=== PATIENT | female | born 1950 | race African-American/Black ===

== ENCOUNTER 2018-10-26 14:54 | Emergency (ER) | payer OTHER ==
--- OUTSIDE RECORDS SUMMARY | 2018-10-26 15:09 | XMS REPORT ---
:1950 [facility] Address [address] [place] [address] Dr. Wilcox [address] [place] [id number] Care Team Providers Name Role Phone Unavailable Unavailable Unavailable Problems This patient has no known problems. Allergies, Adverse Reactions, Alerts This patient has no known allergies or adverse reactions. Medications This patient has no known medications.
[2018-10-26] MEDS ORDERED: MORPHINE 4 MG/ML SYR ONE (16:54)
[2018-10-26] MEDS ORDERED: ONDANSETRON 4 MG (ODT) TAB ONE (16:55)
--- NOTE | 2018-10-26 17:09 | RAD REPORT ---
EXAM DESCRIPTION: USExtremjoshua Venous Uni Ltd10/26/2018 4:41 pm CLINICAL HISTORY: Right leg pain . COMPARISON: None. FINDINGS: Right common femoral, superficial femoral, popliteal and right posterior tibial veins are compressible and demonstrate augmentation. Doppler demonstrates good flow. IMPRESSION: No evidence of deep venous thrombosis involving the right lower extremity.
--- NOTE | 2018-10-26 17:24 | EDPHYS ---
Physician Documentation [facility] Name: Jesusita John Age: 68 yrs Sex: Female : 1950 Arrival Date: 10/26/2018 Time: 14:57 Bed 25 Private MD: Jesse Retana R ED Physician Sourav Guevara HPI: 10/26 16:38 This 68 yrs old Black Female presents to ER via Ambulatory with complaints of Right Leg pm1 Pain. 16:38 The patient presents with pain, swelling. The complaints affect the right lower pm1 extremity. Context: The problem was sustained at home, resulted from an unknown cause, the patient can fully bear weight, the patient is able to ambulate. Onset: The symptoms/episode began/occurred 3 month(s) ago. Modifying factors: The symptoms are alleviated by elevating leg, the symptoms are aggravated by nothing. Associated signs and symptoms: Pertinent negatives fever, shortness of breath and chest pain. Treatment prior to arrival includes: prescription medications, Oxycontin for pain. The patient has been recently seen by a physician: Dr. Wilhelm. Patient saw him 3 months ago for the same complaint of right lower leg swelling and pain. U/S performed and she was told that she had a small blood clot that did not require any intervention except for medications. Patient placed on blood thinners and then followed up with him 2-3 weeks ago and had a ultrasound performed that was negative. Patient reports improvement in the swelling but it has not completely resolved. Historical: - Allergies: 15:13 Bactrim; sg - PMHx: 15:13 Diabetes - IDDM; Hypertension; sg - PSHx: 15:13 Stent placed in RLE; sg - Immunization history:: Adult Immunizations up to date. - Social history:: Smoking status: Patient/guardian denies using tobacco. - Ebola Screening: : Patient negative for fever greater than or equal to 101.5 degrees Fahrenheit, and additional compatible Ebola Virus Disease symptoms Patient denies exposure to infectious person Patient denies travel to an Ebola-affected area in the 21 days before illness onset No symptoms or risks identified at this time. ROS: 16:40 Constitutional: Negative for fever, chills, and weight loss, Eyes: Negative for injury, pm1 pain, redness, and discharge, ENT: Negative for injury, pain, and discharge, Neck: Negative for injury, pain, and swelling, Respiratory: Negative for shortness of breath, cough, wheezing, and pleuritic chest pain, Abdomen/GI: Negative for abdominal pain, nausea, vomiting, diarrhea, and constipation. 16:40 : Negative for injury, bleeding, discharge, and swelling, MS/Extremity: Negative for injury and deformity, Skin: Negative for injury, rash, and discoloration, Neuro: Negative for headache, weakness, numbness, tingling, and seizure. 16:40 Cardiovascular: Positive for edema, right lower leg, Negative for chest pain, orthopnea, palpitations. 16:40 Back: Positive for of the right low back, Negative for injury or acute deformity. Exam: 16:40 Constitutional: This is a well developed, well nourished patient who is awake, alert, pm1 and in no acute distress. Head/Face: Normocephalic, atraumatic. Eyes: Pupils equal round and reactive to light, extra-ocular motions intact. Lids and lashes normal. Conjunctiva and sclera are non-icteric and not injected. Cornea within normal limits. Periorbital areas with no swelling, redness, or edema. ENT: Nares patent. No nasal discharge, no septal abnormalities noted. Tympanic membranes are normal and external auditory canals are clear. Oropharynx with no redness, swelling, or masses, exudates, or evidence of obstruction, uvula midline. Mucous membranes moist. Neck: Trachea midline, no thyromegaly or masses palpated, and no cervical lymphadenopathy. Supple, full range of motion without nuchal rigidity, or vertebral point tenderness. No Meningismus. Chest/axilla: Normal chest wall appearance and motion. Nontender with no deformity. No lesions are appreciated. Cardiovascular: Regular rate and rhythm with a normal S1 and S2. No gallops, murmurs, or rubs. Normal PMI, no JVD. No pulse deficits. Respiratory: Lungs have equal breath sounds bilaterally, clear to auscultation and percussion. No rales, rhonchi or wheezes noted. No increased work of breathing, no retractions or nasal flaring. Abdomen/GI: Soft, non-tender, with normal bowel sounds. No distension or tympany. No guarding or rebound. No evidence of tenderness throughout. Back: No spinal tenderness. No costovertebral tenderness. Full range of motion. Skin: Warm, dry with normal turgor. Normal color with no rashes, no lesions, and no evidence of cellulitis. 16:40 Musculoskeletal/extremity: DVT Exam: no pain, no tenderness, negative Homans' sign noted on exam, no appreciated bluish discoloration, no erythema, no increased warmth, Calves: are non-tender, mild swelling present to right lower extremity below knee. Vital Signs: 15:13 Temp 98.3; sg 16:53 BP 131 / 58; Pulse 62; Resp 17; Pulse Ox 95% ; rv MDM: 15:18 Patient medically screened. pm1 17:22 Data reviewed: vital signs. Data interpreted: Pulse oximetry: on room air is 95 %. pm1 Interpretation: normal. Counseling: I had a detailed discussion with the patient and/or guardian regarding: the historical points, exam findings, and any diagnostic results supporting the discharge/admit diagnosis, radiology results, the need for outpatient follow up, to return to the emergency department if symptoms worsen or persist or if there are any questions or concerns that arise at home. 17:22 ED course: Patient with negative U/S today for DVT to right lower extremity. Patient pm1 had a negative right lower extremity U/S r/o DVT 2-[address] Wilhelm. Patient has pain management with oxycontin. Impression: peripheral edema. Dr Wilhelm decreased patient's amlodipine 1 week ago for patient's right lower extremity swelling. 10/26 15:20 Order name: Extremity Venous Uni Ltd ; Complete Time: 17:11 pm1 Administered Medications: 16:43 Drug: Zofran 4 mg Route: PO; rv 17:11 Follow up: Response: No adverse reaction rv 16:45 Drug: morphine 4 mg Route: IM; Site: left deltoid; rv 17:11 Follow up: Response: Pain is decreased rv Disposition: 10/26/18 17:24 Discharged to Home. Impression: Edema right lower extremity. - Condition is Stable. - Discharge Instructions: Peripheral Edema. - Medication Reconciliation Form, Thank You Letter, Antibiotic Education, Prescription Opioid Use form. - Follow up: Emergency Department; When: As needed; Reason: Worsening of condition. Follow up: Private Physician; When: 2 - 3 days; Reason: Recheck today's complaints, Continuance of care, Re-evaluation by your physician. - Problem is new. - Symptoms have improved. Addendum: 10/29/2018 21:15 Co-signature as Attending Physician, Sourav Guevara MD Available for consultation at p s1 all times. . Signatures: Dispatcher [employer] EDMS Jameel Fairchild, RN RN sg Fly Barragan, WINDING INSPECTOR WINDING INSPECTOR pm1 Sourav Guevara MD MD ps1 Braydon Curtis RN RN rv Corrections: (The following items were deleted from the chart) 10/26 17:42 17:24 10/26/2018 17:24 Discharged to Home. Impression: Edema right lower extremity. rv Condition is Stable. Forms are Medication Reconciliation Form, Thank You Letter, Antibiotic Education, Prescription Opioid Use. Follow up: Emergency Department; When: As needed; Reason: Worsening of condition. Follow up: Private Physician; When: 2 - 3 days; Reason: Recheck today's complaints, Continuance of care, Re-evaluation by your physician. Problem is new. Symptoms have improved. pm1
--- NOTE | 2018-10-26 17:24 | ER ---
Nurse's Notes [facility] Name: Jesusita John Age: 68 yrs Sex: Female : 1950 Arrival Date: 10/26/2018 Time: 14:57 Bed 25 Private MD: Jesse Retana R Diagnosis: Edema right lower extremity Presentation: 10/26 15:11 Presenting complaint: Patient states: Bilateral lower extremiity swelling and pain for sg several months, worsening today in the right lower extremity, reports redness and swelling, has a hx of DVT with stent placement several years ago, denies SOB or difficulty breathing at this time. Transition of care: patient was not received from another setting of care. Onset of symptoms was October 26, 2018. Risk Assessment: Do you want to hurt yourself or someone else? Patient reports no desire to harm self or others. Initial Sepsis Screen: Does the patient meet any 2 criteria? No. Patient's initial sepsis screen is negative. Does the patient have a suspected source of infection? No. Patient's initial sepsis screen is negative. Care prior to arrival: None. 15:11 Method Of Arrival: Ambulatory sg 15:11 Acuity: VITA 3 sg Historical: - Allergies: 15:13 Bactrim; sg - PMHx: 15:13 Diabetes - IDDM; Hypertension; sg - PSHx: 15:13 Stent placed in RLE; sg - Immunization history:: Adult Immunizations up to date. - Social history:: Smoking status: Patient/guardian denies using tobacco. - Ebola Screening: : Patient negative for fever greater than or equal to 101.5 degrees Fahrenheit, and additional compatible Ebola Virus Disease symptoms Patient denies exposure to infectious person Patient denies travel to an Ebola-affected area in the 21 days before illness onset No symptoms or risks identified at this time. Screenin:51 Abuse screen: Denies threats or abuse. Denies injuries from another. Nutritional rv screening: No deficits noted. Tuberculosis screening: No symptoms or risk factors identified. Fall Risk None identified. Assessment: 16:50 General: Appears in no apparent distress. uncomfortable, Behavior is calm, cooperative. rv Pain: Complains of pain in right leg. Neuro: Level of Consciousness is awake, alert, obeys commands, Oriented to person, place, time, situation. Cardiovascular: Capillary refill < 3 seconds. Respiratory: Airway is patent. GI: No signs and/or symptoms were reported involving the gastrointestinal system. : No signs and/or symptoms were reported regarding the genitourinary system. EENT: No signs and/or symptoms were reported regarding the EENT system. Derm: Skin is intact. Musculoskeletal: Swelling present in right leg and left leg Reports pain in right leg. Vital Signs: 15:13 Temp 98.3; sg 16:53 BP 131 / 58; Pulse 62; Resp 17; Pulse Ox 95% ; rv ED Course: 14:57 Patient arrived in ED. mr 14:58 Jesse Retana MD is Private Physician. mr 15:09 Braydon Curtis RN is Primary Nurse. rv 15:09 Fly Barragan NP is PHCP. pm1 15:09 Sourav Guevara MD is Attending Physician. pm1 15:12 Triage completed. sg 15:12 Arm band placed on. sg 16:39 Ultrasound completed. Patient tolerated well. sg3 16:42 Extremity Venous Uni Ltd US In Process Unspecified. EDMS 16:52 Patient has correct armband on for positive identification. Bed in low position. Call rv light in reach. Side rails up X 1. Adult w/ patient. Pulse ox on. NIBP on. 17:41 No provider procedures requiring assistance completed. rv 17:42 Patient did not have IV access during this emergency room visit. rv Administered Medications: 16:43 Drug: Zofran 4 mg Route: PO; rv 17:11 Follow up: Response: No adverse reaction rv 16:45 Drug: morphine 4 mg Route: IM; Site: left deltoid; rv 17:11 Follow up: Response: Pain is decreased rv Outcome: 17:24 Discharge ordered by MD. pm1 17:42 Discharged to home via wheelchair. rv 17:42 Condition: good 17:42 Discharge instructions given to patient, family, Instructed on discharge instructions, follow up and referral plans. Demonstrated understanding of instructions, follow-up care. 17:42 Patient left the ED. rv Signatures: Dispatcher [employer] EDMS Jameel Fairchild RN RN sg Helena Morillo mr Fly Barragan, HEATHER CHIEF MINISTER pm1 Simran Contreras sg3 Ever, Braydon, RN RN rv
[2018-10-26 17:46] VITALS: TEMP 98.3
[2018-10-26 17:47] VITALS: BP 131/58; O2SAT 95
== END 2018-10-26 17:42 | disposition home or self-care (01) ==
LOC: ER 14:54
DX: R60.0 Localized edema (principal); E11.9 Type 2 diabetes mellitus without complications; I10 Essential (primary) hypertension; Z79.4 Long term (current) use of insulin; Z88.1 Allergy status to other antibiotic agents
CPT/HCPCS: 93971; 96372; 99283

== ENCOUNTER 2018-12-24 11:33 | Emergency (ER) | payer OTHER ==
--- OUTSIDE RECORDS SUMMARY | 2018-12-24 11:36 | XMS REPORT ---
:1950 [facility] Address [address] [place] [address] Dr. Wilcox [address] [place] [id number] Care Team Providers Name Role Phone Unavailable Unavailable Unavailable Problems This patient has no known problems. Allergies, Adverse Reactions, Alerts This patient has no known allergies or adverse reactions. Medications This patient has no known medications.
--- NOTE | 2018-12-24 12:46 | ER ---
Nurse's Notes [facility] Name: Jesusita John Age: 68 yrs Sex: Female : 1950 Arrival Date: 12/24/2018 Time: 11:36 Bed 13 Private MD: Jesse Retana R Diagnosis: Sciatica, right side;Sciatica, left side Presentation: 12/24 11:43 Presenting complaint: Patient states: Bilateral lower extremity pain for last three sg days, reports it feels like neuropathy pain but her home medications of Oxycodone,Gabapentin and Cymbalta are not helping, reports having pain even with the lightest touch, reports sciatic pain that runs up both sides of legs into the groin as well. Transition of care: patient was not received from another setting of care. Onset of symptoms was December 24, 2018. Risk Assessment: Do you want to hurt yourself or someone else? Patient reports no desire to harm self or others. Initial Sepsis Screen: Does the patient meet any 2 criteria? No. Patient's initial sepsis screen is negative. Does the patient have a suspected source of infection? No. Patient's initial sepsis screen is negative. Care prior to arrival: None. 11:43 Acuity: VITA 4 sg 11:43 Method Of Arrival: Ambulatory sg Historical: - Allergies: 11:45 Bactrim; sg - PMHx: 11:45 Diabetes - IDDM; Hypertension; sg - PSHx: 11:45 Stent placed in RLE; sg 11:46 Toe Amputation; sg - Immunization history:: Adult Immunizations up to date. - Social history:: Smoking status: Patient/guardian denies using tobacco. - Ebola Screening: : Patient negative for fever greater than or equal to 101.5 degrees Fahrenheit, and additional compatible Ebola Virus Disease symptoms Patient denies exposure to infectious person Patient denies travel to an Ebola-affected area in the 21 days before illness onset No symptoms or risks identified at this time. Screenin:02 Abuse screen: Denies threats or abuse. Denies injuries from another. Nutritional ca1 screening: No deficits noted. Tuberculosis screening: No symptoms or risk factors identified. Fall Risk Ambulatory Aid- Crutches/Cane/Walker (15 pts). Assessment: 12:02 General: Appears in no apparent distress. comfortable, Behavior is calm, cooperative, ca1 appropriate for age. Pain: Complains of pain in buttocks, groin, right leg and left leg Pain currently is 10 out of 10 on a pain scale. Pain began 2-3 days ago. Is chronic. Neuro: Level of Consciousness is awake, alert, obeys commands, Oriented to person. Cardiovascular: Heart tones S1 S2 present Capillary refill < 3 seconds Patient's skin is warm and dry. Respiratory: Airway is patent Respiratory effort is even, unlabored, Respiratory pattern is regular, symmetrical, Breath sounds are clear bilaterally. GI: Abdomen is round non-distended, Bowel sounds present X 4 quads. Abd is soft and non tender X 4 quads. : No deficits noted. No signs and/or symptoms were reported regarding the genitourinary system. EENT: No deficits noted. No signs and/or symptoms were reported regarding the EENT system. Derm: Skin is intact, is healthy with good turgor, Skin is pink, warm \T\ dry. Musculoskeletal: Circulation, motion, and sensation intact. Capillary refill < 3 seconds, Range of motion: intact in all extremities. 13:00 Reassessment: Patient appears in no apparent distress at this time. Patient and/or ca1 family updated on plan of care and expected duration. Pain level reassessed. Patient is alert, oriented x 3, equal unlabored respirations, skin warm/dry/pink. 13:20 Reassessment: Patient appears in no apparent distress at this time. Patient is alert, ca1 oriented x 3, equal unlabored respirations, skin warm/dry/pink. Patient states feeling better. Vital Signs: 11:44 Weight 133.81 kg; Height 5 ft. 5 in. (165.10 cm); Pain 9/10; sg 12:02 BP 121 / 39; Pulse 67; Resp 16 S; Pulse Ox 98% on R/A; ca1 13:00 BP 139 / 71; Pulse 63; Resp 16 S; Temp 97.6(O); Pulse Ox 100% ; ca1 11:44 Body Mass Index 49.09 (133.81 kg, 165.10 cm) sg ED Course: 11:36 Patient arrived in ED. mr 11:37 Jesse Retana MD is Private Physician. mr 11:44 Triage completed. sg 11:46 Arm band placed on. sg 12:02 Patient has correct armband on for positive identification. Bed in low position. Call ca1 light in reach. Side rails up X 1. Pulse ox on. NIBP on. Warm blanket given. 12:08 Kirstin Juarez, RN is Primary Nurse. ca1 12:19 Leonid Smith MD is Attending Physician. ma2 13:00 No provider procedures requiring assistance completed. Patient did not have IV access ca1 during this emergency room visit. Administered Medications: 12:44 Drug: TORadol 60 mg Route: IM; Site: right gluteus; ca1 13:20 Follow up: Response: No adverse reaction; Pain is decreased ca1 Outcome: 12:46 Discharge ordered by . ma 13:22 Discharged to home via wheelchair. ca1 13:22 Condition: stable 13:22 Discharge instructions given to patient, Instructed on discharge instructions, follow up and referral plans. medication usage, Demonstrated understanding of instructions, follow-up care, medications, Prescriptions given X 2. 13:22 Patient left the ED. ca1 Signatures: Jameel Fairchild RN RN Helena Morillo mr Leonid Smith MD MD moKirstin Armstrong RN RN [facility]
--- NOTE | 2018-12-24 12:47 | EDPHYS ---
Physician Documentation [facility] Name: Jesusita John Age: 68 yrs Sex: Female : 1950 Arrival Date: 12/24/2018 Time: 11:36 Bed 13 Private MD: Jesse Retana R ED Physician Leonid Smith HPI: 12/24 12:43 This 68 yrs old Black Female presents to ER via Ambulatory with complaints of Lower ma2 extremity pain. 12:43 The patient or guardian reports bilateral hip pain. Onset: The symptoms/episode ma2 began/occurred gradually, 2 week(s) ago. Associated signs and symptoms: Pertinent negatives: abdominal pain. 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 - Social history:: Smoking status: Patient/guardian denies using tobacco. - Ebola Screening: : Patient negative for fever greater than or equal to 101.5 degrees Fahrenheit, and additional compatible Ebola Virus Disease symptoms Patient denies exposure to infectious person Patient denies travel to an Ebola-affected area in the 21 days before illness onset No symptoms or risks identified at this time. ROS: 12:45 Constitutional: Negative for fever, chills, and weight loss. ma2 12:45 All other systems are negative. Exam: 12:45 Constitutional: This is a well developed, well nourished patient who is awake, alert, ma2 and in no acute distress. Head/Face: Normocephalic, atraumatic. Eyes: Pupils equal round and reactive to light, extra-ocular motions intact. Lids and lashes normal. Conjunctiva and sclera are non-icteric and not injected. Cornea within normal limits. Periorbital areas with no swelling, redness, or edema. Chest/axilla: Normal chest wall appearance and motion. Nontender with no deformity. No lesions are appreciated. Cardiovascular: Regular rate and rhythm with a normal S1 and S2. No gallops, murmurs, or rubs. Normal PMI, no JVD. No pulse deficits. Respiratory: Lungs have equal breath sounds bilaterally, clear to auscultation and percussion. No rales, rhonchi or wheezes noted. No increased work of breathing, no retractions or nasal flaring. Abdomen/GI: Soft, non-tender, with normal bowel sounds. No distension or tympany. No guarding or rebound. No evidence of tenderness throughout. Skin: Warm, dry with normal turgor. Normal color with no rashes, no lesions, and no evidence of cellulitis. MS/ Extremity: Pulses equal, no cyanosis. Neurovascular intact. Full, normal range of motion. Neuro: Awake and alert, GCS 15, oriented to person, place, time, and situation. Cranial nerves II-XII grossly intact. Motor strength 5/5 in all extremities. Sensory grossly intact. Cerebellar exam normal. Normal gait. Vital Signs: 11:44 Weight 133.81 kg; Height 5 ft. 5 in. (165.10 cm); Pain 9/10; sg 12:02 BP 121 / 39; Pulse 67; Resp 16 S; Pulse Ox 98% on R/A; ca1 13:00 BP 139 / 71; Pulse 63; Resp 16 S; Temp 97.6(O); Pulse Ox 100% ; ca1 11:44 Body Mass Index 49.09 (133.81 kg, 165.10 cm) sg MDM: 12:22 Patient medically screened. ma2 12:45 Differential diagnosis: bursitis, arthritis, strain, sciaticA. Data reviewed: vital ma2 signs, nurses notes. Counseling: I had a detailed discussion with the patient and/or guardian regarding: the historical points, exam findings, and any diagnostic results supporting the discharge/admit diagnosis, the presence of at least one elevated blood pressure reading (>120/80) during this emergency department visit, the need for outpatient follow up. Response to treatment: the patient's symptoms have markedly improved after treatment. Administered Medications: 12:44 Drug: TORadol 60 mg Route: IM; Site: right gluteus; ca1 13:20 Follow up: Response: No adverse reaction; Pain is decreased ca1 Disposition: 12/24/18 12:46 Discharged to Home. Impression: Sciatica, right side, Sciatica, left side. - Condition is Stable. - Discharge Instructions: Sciatica. - Prescriptions for Tylenol- Codeine #3 300-30 mg Oral Tablet - take 2 tablet by ORAL route every 6 hours As needed; 30 tablet. Medrol (Kota) 4 mg Oral Tablets, Dose Pack - take 1 tablet by ORAL route as directed - follow package instructions; 1 packet. - Medication Reconciliation Form, Thank You Letter, Antibiotic Education, Prescription Opioid Use form. - Follow up: Private Physician; When: Tomorrow; Reason: Continuance of care. Signatures: Jameel Fairchild RN RN sg Leonid Smith MD MD ma2 Kirstin Juarez RN RN ca1 Corrections: (The following items were deleted from the chart) 13:22 12:46 12/24/2018 12:46 Discharged to Home. Impression: Sciatica, right side; Sciatica, ca1 left side. Condition is Stable. Forms are Medication Reconciliation Form, Thank You Letter, Antibiotic Education, Prescription Opioid Use. Follow up: Private Physician; When: Tomorrow; Reason: Continuance of care. ma2
[2018-12-24] MEDS ORDERED: KETOROLAC 30 MG/ML INJ ONE (12:58)
[2018-12-25 19:17] VITALS: BP 139/71; TEMP 97.6; O2SAT 100
== END 2018-12-24 13:22 | disposition home or self-care (01) ==
LOC: ER 11:33
DX: M54.32 Sciatica, left side (principal); M54.31 Sciatica, right side; I10 Essential (primary) hypertension; Z88.1 Allergy status to other antibiotic agents
CPT/HCPCS: 96372; 99283